=== PATIENT | female | born 1970 | race Caucasian/White ===

== ENCOUNTER 2022-06-11 09:48 | Emergency (ER) | payer OTHER, SELFPAY ==
[2022-06-11 10:11] VITALS: BP 129/62; PULSE 85; RESP 20; TEMP 36.6; O2SAT 97; BMI 26.4
--- NOTE | 2022-06-11 10:31 | XR_ITS ---
WS: [id number] Exam: XR chest 1V portable [id number] Date/Time of Exam: 06/11/2022 10:30 AM Reason For Exam: dyspnea/cough No priors. The lungs are fully inflated and clear. Normal cardiomediastinal structures and bony eleme nts. No pleural effusions. XR/XR chest 1V portable [id number] IMPRESSION: 1. Negative chest.
[2022-06-11] MEDS: sodium chloride 0.9% 1,000 ML 999 ML IV (10:49)
--- NOTE | 2022-06-11 10:52 | ED_ITS ---
HPI - Nausea/Vomiting/Diarrhea General: Chief complaint: Nausea/Vomiting/Diarrhea Stated complaint: N/V Time Seen by Provider: 06/11/22 10:17 Source: patient Mode of arrival: ambulatory History of Present Illness: 52-year-old female presents emergency room for cough cold symptoms for about the last week. She she has had nausea vomiting on a couple of occasions decreased p.o. intake denies any hematochezia melena hematemesis or coffee-ground emesis. She states she never had any diarrhea stools have been relatively normal she been taking Tylenol and ibuprofen for symptoms cough for the most part is been nonproductive. She had made arrangements to see her PCP but was deferred to the emergency room. She denies any chest pain. Patient does not smoke has no chronic lung history. MD elicited complaint: nausea and vomiting Onset (ago): day(s) Description of vomiting: watery Associated nausea: Yes Associated abdominal pain: No Location of pain: None Exacerbating factors: none Relieving factors: none Associated symtoms: Reports cough, fatigue and nausea; Denies altered mental status, anxiety, bloating, change in vision, chest pain, diaphoresis, decreased urine output, dizziness, dysuria, epistaxis, fecal incontinence, fevers/chills, headache(s), anorexia, malaise, myalgias, numbness, palpitations, rash, short of breath, syncope, tenesmus or tinnitus Review of Systems Const: Reports: fatigue; Denies: fever(s), chills, malaise or diaphoresis Eyes: Denies: change in vision ENMT: Denies: tinnitus or epistaxis Card: Denies: chest pain, palpitations or syncope Resp: Denies: dyspnea, productive cough or non-productive cough GI: Reports: nausea and vomiting; Denies: abdominal pain, diarrhea, bloating or fecal incontinence : Denies: dysuria, urinary frequency or urinary urgency Musc: Denies: neck pain or back pain Skin/Breast: Denies: rash or pruritus Neuro: Denies: headache(s) or dizziness Psych: Denies: anxiety PFS ED PFSH: Medical History (Updated 06/11/22 @ 12:47 by Dwaine Beltran DO) No pertinent past medical history Denies: Hypertension, hypercholesterolemia, diabetes, thyroid, heart, liver, kidney, lung problems, DVT/PE. 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 Physical Exam Const: EXAM LIMITATIONS: no altered mental status GENERAL APPEARANCE: cooperative and comfortable ORIENTATION/CONSCIOUSNESS: Yes awake, Yes oriented to person, Yes oriented to place and Yes oriented to time HENMT: COMMON NORMALS: normocephalic, atraumatic and hearing grossly normal bilaterally HEAD & SCALP: normocephalic and atraumatic Resp: COMMON NORMALS: normal respiratory effort, No retractions, No use of accessory muscles and clear to auscultation bilaterally AUSCULTATION: clear to auscultation bilaterally Cardio: COMMON NORMALS: regular rate, regular rhythm and No murmurs present (Cardio) RATE: regular rate RHYTHM: regular rhythm GI: COMMON NORMALS: Soft to palpation and No hepatosplenomegaly present AUSCULTATION: Yes normoactive bowel sounds PALPATION: Yes Soft to palpation, No Tenderness to palpation present (GI), No Guarding due to palpation present (GI) and Yes No hepatosplenomegaly present Extremity: COMMON NORMALS: normal to inspection, capillary refill normal, no clubbing, cyanosis or edema, no calf tenderness and no pedal edema Neuro: SENSORIUM/ORIENTATION: Yes oriented to person, Yes oriented to place and Yes oriented to time Skin: COMMON NORMALS: no rashes or lesions noted GENERAL SKIN EXAM: no rashes or lesions noted Course Vital Signs: Vital signs: Vital Signs Temperature 97.9 F 06/11/22 10:11 Pulse Rate 84 06/11/22 11:40 Respiratory Rate 16 06/11/22 11:40 Blood Pressure 133/75 06/11/22 11:40 Pulse Oximetry 93 06/11/22 11:40 Oxygen Delivery Me thod 06/11/22 11:40 MDM - Nausea/Vomiting/Diarrhea Medical Decision Making Improved after IV fluids. Flu and COVID swabs negative. Clear liquid diet 24 to 48 hours antiemetics as needed follow-up as needed Medical Records I reviewed the patient's medical records. Lab Data I reviewed the patient's lab results. 06/11/22 10:56 06/11/22 10:56 Radiology Impressions Chest X-Ray 06/11/22 10:31 IMPRESSION: 1. Negative chest. Laboratory Results WBC 8.3 10^3/uL (4.0-10.0) 06/11/22 10:56 RBC 4.62 10^6/uL (4.1-5.3) 06/11/22 10:56 Hgb 13.9 g/dL (11.5-15.3) 06/11/22 10:56 Hct 41.5 % (37.0-47.0) 06/11/22 10:56 MCV 89.8 fl (81-99) 06/11/22 10:56 MCH 30.1 pg (28.0-34.0) 06/11/22 10:56 MCHC 33.5 g/dL (30.0-36.0) 06/11/22 10:56 RDW 12.0 % (12.1-15.1) L 06/11/22 10:56 Plt Count 223 10^3/cmm (130-400) 06/11/22 10:56 MPV 10.4 fL (7.4-10.4) 06/11/22 10:56 Neut % (Auto) 72.0 % 06/11/22 10:56 Lymph % (Auto) 21.4 % 06/11/22 10:56 [place] % (Auto) 6.3 % 06/11/22 10:56 Eos % (Auto) 0.1 % 06/11/22 10:56 Baso % (Auto) 0.0 % 06/11/22 10:56 Neut # (Auto) 5.98 10^3/uL (1.8-7.7) 06/11/22 10:56 Lymph # (Auto) 1.8 10^3/uL (0.8-4.8) 06/11/22 10:56 [place]cal[place] # (Auto) 0.5 10^3/uL (0.2-0.9) 06/11/22 10:56 Eos # (Auto) 0.0 10^3/uL (0.0-0.8) 06/11/22 10:56 Baso # (Auto) 0.0 10^3/uL (0.0-0.1) 06/11/22 10:56 Nucleated RBC % (auto) 0 % 06/11/22 10:56 Nucleated RBCs # 0.0 /100WBC 06/11/22 10:56 Sodium 138 mmol/L (136-145) 06/11/22 10:56 Potassium 3.5 mmol/L (3.5-5.1) 06/11/22 10:56 Chloride 103 mmol/L (98-107) 06/11/22 10:56 Carbon Dioxide 21 mmol/L (22-29) L 06/11/22 10:56 Anion Gap 17.5 (5-19) 06/11/22 10:56 BUN 14 mg/dL (6-20) 06/11/22 10:56 Creatinine 0.7 mg/dL (0.5-0.9) 06/11/22 10:56 GFR Calculation 88.2 mL/min (90-130) L 06/11/22 10:56 Glucose 100 mg/dL (65-115) 06/11/22 10:56 Calculated Osmolality 287 mOsm/kg (285-295) 06/11/22 10:56 Calcium 9.5 mg/dL (8.5-10.5) 06/11/22 10:56 Total Bilirubin 0.5 mg/dL (0.15-1.2) 06/11/22 10:56 AST 23 U/L (0-32) 06/11/22 10:56 ALT 26 U/L (0-33) 06/11/22 10:56 Alkaline Phosphatase 96 U/L (35-105) 06/11/22 10:56 Total Protein 7.7 g/dL (6.6-8.7) 06/11/22 10:56 Albumin 4.4 g/dL (3.5-5.2) 06/11/22 10:56 Globulin 3.3 g/dL (1.3-4.6) 06/11/22 10:56 Urine Color Dark yellow (Yellow) 06/11/22 10:36 Urine Appearance Clear (CLEAR) 06/11/22 10:36 Urine pH 6 (5-7) 06/11/22 10:36 Ur Specific [place] 1.015 (1.005-1.030) 06/11/22 10:36 Urine Protein Neg (Negative) 06/11/22 10:36 Urine Glucose (UA) Norm (Normal) 06/11/22 10:36 Urine Ketones 2+ (Negative) H 06/11/22 10:36 Urine Blood Neg (Negative) 06/11/22 10:36 Urine Nitrate Negative (Negative) 06/11/22 10:36 Urine Bilirubin Neg (Negative) 06/11/22 10:36 Urine Urobilinogen 1 mg/dL (Negative) H 06/11/22 10:36 Ur Leukocyte Esterase Negative (Negative) 06/11/22 10:36 Urine RBC None /hpf (0-2) 06/11/22 10:36 Urine WBC 5-10 /hpf (0-5) H 06/11/22 10:36 Ur Squamous Epith Cells 0-4 /hpf (0-5) H 06/11/22 10:36 Amorphous Sediment Not Reportable 06/11/22 10:36 Urine Bacteria Trace /hpf (NONE) 06/11/22 10:36 Urine Mucus 2+ /hpf 06/11/22 10:36 Nasal Influ A H1 2009 PCR Detected (NOT DETECT) A 06/11/22 11:01 Coronavirus 229E (PCR) Not detected (NOT DETECT) 06/11/22 11:01 Influenza A (H1) PCR Not detected (NOT DETECT) 06/11/22 11:01 Influenza A (H3) PCR Not detected (NOT DETECT) 06/11/22 11:01 Influenza Type A Ag Cancelled 06/11/22 11:01 Influenza Type A (PCR) Not detected (NOT DETECT) 06/11/22 11:01 Influenza Type B Ag Cancelled 06/11/22 11:01 Influenza Type B (PCR) Not detected (NOT DETECT) 06/11/22 11:01 SARS-CoV-2 (PCR) Not detected (NOT DETECT) 06/11/22 11:01 Discharge Plan Discharge Patient Disposition: Home Clinical Impression: Nausea & vomiting Condition: Stable Prescriptions: New ondansetron HCl 4 mg tablet 4 mg PO Q6H PRN (Reason: nausea and vomiting) Qty: 20 0RF No Action ibuprofen 200 mg Tablet 400 mg PO Q6H PRN (Reason: Pain) Tylenol 325 mg Capsule 650 mg PO QID PRN (Reason: Pain) Zyrtec 10 mg Capsule 10 mg PO DAILY PRN (Reason: Allergy Symptoms) Discharge Orders: Discharge ED (Routine); Ordered 06/11/22 Ordered By: Dwaine Beltran Discharge Diet: Advance as tolerated Discharge Activity: Increase activity as tolerated Patient Instructions: Opioid Safety, Pain Management Activity Restrictions/Additional Instructions: You are seen today for persistent nausea and vomiting. You are given IV fluids. Laboratory work was largely unremarkable here COVID and flu swabs are pending. Recommend clear liquid diet for the next 24 to 48 hours and advance as tolerated May use ondansetron as needed if you have recurrent nausea. Coding Level of Care Code ED [employer] Dist[employer] Operator for [facility] Fwd Exam Detailed
[2022-06-11] MEDS: ondansetron 2 mg/ML SDV 2 mL 4 MG IVP (10:54)
[2022-06-11 11:06] VITALS: BP 127/81; PULSE 88; RESP 16; O2SAT 97
[2022-06-11 11:08] LABS: Eosinophils % 0.1 %; Hematocrit 41.5 % (37.0-47.0); Hemoglobin 13.9 g/dL (11.5-15.3); Lymphocytes # 1.8 10^3/uL (0.8-4.8); Lymphocytes % 21.4 %; Mean Corpuscular HGB Conc 33.5 g/dL (30.0-36.0); Mean Corpuscular Hemoglobin 30.1 pg (28.0-34.0); Mean Corpuscular Volume 89.8 fl (81-99); Mean Platelet Volume 10.4 fL (7.4-10.4); Monocytes # 0.5 10^3/uL (0.2-0.9); Monocytes % 6.3 %; Neutrophils # 5.98 10^3/uL (1.8-7.7); Nucleated Red Blood Cells % 0 %; Platelet Count 223 10^3/cmm (130-400); Red Blood Count 4.62 10^6/uL (4.1-5.3); White Blood Count 8.3 10^3/uL (4.0-10.0)
[2022-06-11 11:26] LABS: Alanine Aminotransferase 26 U/L (0-33); Albumin Level 4.4 g/dL (3.5-5.2); Alkaline Phosphatase 96 U/L (35-105); Anion Gap 17.5 (5-19); Aspartate Amino Transferase 23 U/L (0-32); Blood Urea Nitrogen 14 mg/dL (6-20); Calcium 9.5 mg/dL (8.5-10.5); Carbon Dioxide 21 mmol/L (22-29); Chloride 103 mmol/L (98-107); Globulin 3.3 g/dL (1.3-4.6); Glomerular Filtration Rate 88.2 mL/min (90-130); Glucose 100 mg/dL (65-115); Osmolality Calculated 287 mOsm/kg (285-295); Potassium 3.5 mmol/L (3.5-5.1); Sodium 138 mmol/L (136-145); Total Bilirubin 0.5 mg/dL (0.15-1.2); Total Protein 7.7 g/dL (6.6-8.7)
[2022-06-11 11:40] VITALS: BP 133/75; PULSE 84; RESP 16; O2SAT 93
[2022-06-11 11:42] LABS: Protein Urine Neg (Negative); Specific Gravity, Urine 1.015 (1.005-1.030); Urine Appearance Clear (CLEAR); Urine Color Dark Yellow (Yellow); pH Urine 6 (5-7)
[2022-06-11 11:43] LABS: Add Urine Culture? No; Add Urine Microscopic? YES; Bacteria Urine TRACE /hpf; Bilirubin Urine Neg (Negative); Blood Urine Neg (Negative); Glucose Urine UA Norm (Normal); Ketones Urine 2+ (Negative); Leukocyte Esterase Urine Negative (Negative); Mucus Urine 2+ /hpf; Nitrate Urine Negative (Negative); Squamous Epithelial Cell Urine 0-4 /hpf (0-5); Urobilinogen Urine 1 mg/dL (Negative)
[2022-06-11 13:12] LABS: Adenovirus Not Detected (NOT DETECT); Chlamydia Pneumoniae Not Detected (NOT DETECT); Coronavirus 229E,HKU1,NL63,OC4 Not Detected (NOT DETECT); Human Metapneumovirus Not Detected (NOT DETECT); Human Rhinovirus/Enterovirus Not Detected (NOT DETECT); Influenza A Not Detected (NOT DETECT); Influenza A H1 Not Detected (NOT DETECT); Influenza A H1-2009 Detected (NOT DETECT); Influenza A H3 Not Detected (NOT DETECT); Influenza B Not Detected (NOT DETECT); Mycoplasma Pneumoniae Not Detected (NOT DETECT); Parainfluenza Virus Type 1 Not Detected (NOT DETECT); Parainfluenza Virus Type 2 Not Detected (NOT DETECT); Parainfluenza Virus Type 3 Not Detected (NOT DETECT); Parainfluenza Virus Type 4 Not Detected (NOT DETECT); Respiratory Syncytial Virus A Not Detected (NOT DETECT); Respiratory Syncytial Virus B Not Detected (NOT DETECT); SARS-COV-2 Not Detected (NOT DETECT)
[2022-06-11 13:27] LABS: Influenza A Not Detected (NOT DETECT); Influenza A H1 Not Detected (NOT DETECT); Influenza A H1-2009 Detected (NOT DETECT); Influenza A H3 Not Detected (NOT DETECT); Influenza B Not Detected (NOT DETECT); Results from Genmark
--- NOTE | 2022-06-11 15:08 | PC.NURSE ---
Called pt and informed her that she tested positive for H1N1 influenza.
== END 2022-06-11 12:56 | disposition home or self-care (01) ==
PROVIDERS: Emergency Provider Family Medicine
DX: R11.2 Nausea with vomiting, unspecified (principal); Z20.822 Contact with and (suspected) exposure to COVID-19
CPT/HCPCS: 71045; 80053; 81001; 85025; 87631; 87635; 96361; 96374; 99284; J2405; J7030